=== PATIENT | female | born 1950 | race Caucasian/White ===

== ENCOUNTER 2018-10-27 10:53 | Emergency (ER) | payer MEDICARE ==
[~2018-10-27] VITALS: Ht 157.5 cm; Wt 99.3 kg
[~2018-10-27 10:53] MED LIST: ATOR20 PO; METPRE4DP PO; PENVK500 PO; TRAM50 PO; Ultram50 MG PO; VICODIN 5-3001 EACH PO
[2018-10-27] MEDS ORDERED: HYDCHL12.5 PO (11:06)
[2018-10-27] MEDS ORDERED: ROSU10TA PO (11:07)
[2018-10-27] MEDS ORDERED: TRAM50 PO (11:07)
[2018-10-27] MEDS ORDERED: Voltaren100 GM TOP (11:50)
== END 2018-10-27 12:00 | disposition home or self-care (01) ==
LOC: ER 10:53
DX: M19.042 Primary osteoarthritis, left hand (principal); Z88.1 Allergy status to other antibiotic agents; Z88.8 Allergy status to other drugs, medicaments and biological substances; Z88.5 Allergy status to narcotic agent; Z79.899 Other long term (current) drug therapy
CPT/HCPCS: 29125; 73130; 99283-25

== ENCOUNTER 2019-07-11 06:08 | Day surgery (SDC) | payer MEDICARE ==
[~2019-07-11] VITALS: Ht 154.9 cm; Wt 95.4 kg
[~2019-07-11 06:08] MED LIST changes: +HYDCHL12.5 PO; +ROSU10TA PO; +Triamcinolone A15 G3 TOP; +Voltaren100 GM TOP
--- NOTE | 2019-07-11 06:55 | NUR ---
PT ADMITTED TO [facility]. AGREES WITH PLANNED SURGERY. LUNG SOUNDS CLEAR.
--- NOTE | 2019-07-11 10:09 | NUR ---
PT C/O NAUSEA AND PROCESSED TO VOMITING ON ARRIVAL TO [facility]. PT CLEANED UP WITH WET WASH CLOTH, BLANKETS REMOVED AND PT PROVIDED WITH REGLAN 10MG IV PUSH FOR C/O NAUSEA. FLUIDS OPENED UP SLIGHTLY AT THIS TIME. PT DENIES PAIN AT THIS TIME. DRESSINGS DRY AND INTACT.
--- NOTE | 2019-07-11 10:17 | NUR ---
PT REPORTS SOME IMPROVEMENT IN NAUSEA BUT STILLS FEELS LIKE SHE IS UNABLE TO DRINK ANYTHING. WOULD LIKE ADDITIONAL NAUSEA MEDICATIONS. PHENERGAN 12.5MG DILUTE GIVEN IN RUNNING IV FLUIDS. PT RESTING OTHERWISE COMFORTABLY, DENIES PAIN.
--- NOTE | 2019-07-11 11:16 | NUR ---
assumed care of patient at 1100 vss called dumpcart driver and friend coming in to get patient and will be here about 1120.
--- NOTE | 2019-07-11 11:22 | NUR ---
PATIENT DRESSED AND READY FOR DISCHARGE AT [facility] TIME. WAITING FOR WHEEL CHAIR ESCORT. Discharge instructions reviewed with patient. Patient verbalizes understanding. Copy given to patient to take home. Patient States Post-Procedure ride home has been arranged. Discharged via wheelchair to private car for ride home.
== END 2019-07-11 23:05 | disposition home or self-care (01) ==
LOC: ORSCMMR 06:08 → ORD 07:30 → ORSCMMR 23:05
PROVIDERS: Surgery
PROC: BF031ZZ Plain Radiography of Gallbladder and Bile Ducts using Low Osmolar Contrast (ICD-10-PCS; principal; 2019-07-11 07:30)
PROC: 0FT44ZZ Resection of Gallbladder, Percutaneous Endoscopic Approach (ICD-10-PCS; principal; 2019-07-11 07:30)
DX: K80.11 Calculus of gallbladder with chronic cholecystitis with obstruction (principal); I10 Essential (primary) hypertension; E78.00 Pure hypercholesterolemia, unspecified; E66.01 Morbid (severe) obesity due to excess calories; Z68.39 Body mass index [BMI] 39.0-39.9, adult
CPT/HCPCS: 74300; 82947; 88304; C1729; J0690; J1100; J1885; J2250; J2405; J2550; J2704; J2710; J2765; J3010; J7120

== ENCOUNTER 2020-10-23 07:02 | Day surgery (SDC) | payer MEDICARE ==
[~2020-10-23] VITALS: Ht 154.9 cm; Wt 96.3 kg
[2020-10-23] MEDS ORDERED: Aspirin EC81 MG PO (08:04)
== END 2020-10-23 11:57 | disposition home or self-care (01) ==
LOC: ORSCSDS 07:02
PROVIDERS: Surgery
PROC: 0JB50ZZ Excision of Left Neck Subcutaneous Tissue and Fascia, Open Approach (ICD-10-PCS; principal; 2020-10-23 09:00)
PROC: 0JB70ZZ Excision of Back Subcutaneous Tissue and Fascia, Open Approach (ICD-10-PCS; principal; 2020-10-23 09:00)
DX: L72.3 Sebaceous cyst (principal); I10 Essential (primary) hypertension; E78.5 Hyperlipidemia, unspecified; E11.9 Type 2 diabetes mellitus without complications; E66.01 Morbid (severe) obesity due to excess calories; Z68.39 Body mass index [BMI] 39.0-39.9, adult; Z79.82 Long term (current) use of aspirin; Z79.899 Other long term (current) drug therapy
CPT/HCPCS: 82947; 88304; J0690; J1100; J2250; J2370; J2405; J2704; J3010; J7120

== ENCOUNTER 2023-06-02 09:13 | Day surgery (SDC) | payer OTHER ==
[~2023-06-02] VITALS: Ht 152.4 cm; Wt 87.5 kg
[~2023-06-02 09:13] MED LIST changes: +Aspirin EC81 MG PO
[2023-06-02] MEDS ORDERED: DORZOLAMIDE-TIM10 ML (09:45)
[2023-06-02 11:31] VITALS: BP 147/76
--- NOTE | 2023-06-02 12:28 | NUR ---
06/02/23 [facility]8 Bailey Escalante TCR,ORD CONSULTED DR SANDOVAL BECAUSE PATIENT HR RANGING 50-60, PER DR SANDOVAL IF BP IS WITHIN BASELINE OK TO DISCHARGE. NO OTHER NEW ORDERS.
== END 2023-06-02 12:23 | disposition home or self-care (01) ==
LOC: ORSCSDS 09:13
PROVIDERS: Podiatrist Foot & Ankle Surgery
PROC: 0QBN0ZZ Excision of Right Metatarsal, Open Approach (ICD-10-PCS; principal; 2023-06-02 10:45)
PROC: 0QBQ0ZZ Excision of Right Toe Phalanx, Open Approach (ICD-10-PCS; principal; 2023-06-02 10:45)
DX: M77.41 Metatarsalgia, right foot (principal); M20.41 Other hammer toe(s) (acquired), right foot; I10 Essential (primary) hypertension; K21.9 Gastro-esophageal reflux disease without esophagitis; Z79.899 Other long term (current) drug therapy
CPT/HCPCS: C1713; C1769; J0171; J0690; J1100; J2250; J2405; J2704; J2795; J3010; J7120